=== PATIENT | male | born 1985 | race Caucasian/White ===

== ENCOUNTER 2019-05-30 08:42 | Emergency (ER) | payer MEDICAID, OTHER ==
[~2019-05-30] VITALS: Ht 167.6 cm; Wt 79.5 kg
[2019-05-30 09:25] VITALS: BP 145/88
[2019-05-30] MEDS ORDERED: ketorolac tromethamine 15mg/ml inj. IM ONE (10:35)
== END 2019-05-30 10:50 | disposition home or self-care (01) ==
LOC: ER 08:42
DX: M25.511 Pain in right shoulder (principal); X50.1XXA Overexertion from prolonged static or awkward postures, initial encounter; Y93.B2 Activity, push-ups, pull-ups, sit-ups; Y92.89 Other specified places as the place of occurrence of the external cause; Y99.9 Unspecified external cause status
CPT/HCPCS: 73030; 96372; 99283; J1885